=== PATIENT | female | born 1975 | race African-American/Black ===

== ENCOUNTER 2017-05-18 13:39 | Emergency (ER) | payer MEDICAID ==
[~2017-05-18] VITALS: Ht 165.1 cm; Wt 116.6 kg
[2017-05-18 13:53] VITALS: Ht 165.1 cm; Wt 116.6 kg
[2017-05-18 15:41] LABS: BASOPHIL % 0.5 % (0-2); PLATELET COUNT 249 x10^3mcL (130-400)
[2017-05-18 15:47] LABS: RED CELL DISTRIBUTION WIDTH 17.7 % (11.5-14.5)
[2017-05-18 15:55] LABS: CALCIUM 8.7 mg/dL (8.5-10.1); CARBON DIOXIDE 30.9 mmol/L (21-32); CREATININE SERUM 1.3 mg/dL (0.6-1.0); POTASSIUM SERUM 3.5 mmol/L (3.5-5.1)
[2017-05-18 16:00] LABS: BILIRUBIN TOTAL 0.33 mg/dL (0.20-1.00); TOTAL PROTEIN, SERUM 7.5 g/dL (6.4-8.2)
[2017-05-18 16:02] LABS: ALBUMIN 3.2 g/dL (3.4-5.0)
[2017-05-18] MEDS ORDERED: ZANTAC 150150 MG (16:57)
[2017-05-18 19:10] VITALS: BP 142/74
== END 2017-05-18 18:05 | disposition home or self-care (01) ==
LOC: ED 13:39 → DU 16:56 → ED 18:05
PROVIDERS: Emergency Medicine
DX: I20.0 Unstable angina (principal); N39.0 Urinary tract infection, site not specified; I10 Essential (primary) hypertension
CPT/HCPCS: 36415; 83880; Q0092